=== PATIENT | male | born 2000 | race Hispanic/Latino ===

== ENCOUNTER 2023-05-15 11:38 | Emergency (ER) | payer OTHER ==
[~2023-05-15] VITALS: Ht 177.8 cm; Wt 93.2 kg
[2023-05-15] MEDS ORDERED: XALA0.007 OP (12:05)
[2023-05-15] MEDS ORDERED: CIPRHCOTIC OTIC (14:45)
[2023-05-15] MEDS ORDERED: AMOX875T2 PO (14:45)
[2023-05-15 15:01] VITALS: BP 130/67; TEMP 99.2; O2SAT 98
== END 2023-05-15 15:02 | disposition home or self-care (01) ==
LOC: M ED 11:38
DX: H60.93 Unspecified otitis externa, bilateral (principal); Z79.2 Long term (current) use of antibiotics; Z79.899 Other long term (current) drug therapy